=== PATIENT | male | born 1965 | race Caucasian/White ===

== ENCOUNTER 2023-12-28 09:11 | Day surgery (SDC) | payer BC ==
[~2023-12-28] VITALS: Ht 160 cm; Wt 50.0 kg
[2023-12-28] MEDS ORDERED: fentaNYL CITRATE/PF 100 MCG/2 ML AMP ONE (09:26)
[2023-12-28] MEDS ORDERED: MIDAZOLAM HCL 5 MG/5 ML VIAL ONE (09:27)
[2023-12-28] MEDS ORDERED: MEPERIDINE 100 MG INJ. 100 MG/ML VIAL ONE (09:27)
[2023-12-28] MEDS ORDERED: BENZOCAINE 20% 0.5mL UD SPRAY MM ONE (09:55)
[2023-12-28 12:12] VITALS: O2SAT 100
[2023-12-28 14:09] VITALS: BP_SYST 105; PULSE 92; RESP 13
== END 2023-12-28 13:05 | disposition home or self-care (01) ==
LOC: SGI 09:11 → SMU 09:14 → SGI 13:05
PROVIDERS: ATTEND Internal Medicine
DX: R19.4 Change in bowel habit (principal); K29.50 Unspecified chronic gastritis without bleeding; K63.89 Other specified diseases of intestine; K64.8 Other hemorrhoids; R10.9 Unspecified abdominal pain; R14.0 Abdominal distension (gaseous); R63.4 Abnormal weight loss; I25.10 Atherosclerotic heart disease of native coronary artery without angina pectoris; Z68.1 Body mass index [BMI] 19.9 or less, adult; Z90.49 Acquired absence of other specified parts of digestive tract; Z98.890 Other specified postprocedural states
CPT/HCPCS: 45380; 43239; 99152; 88305; 88312; 88313; 99153; G0378; J2250; J2175; J3010